=== PATIENT | female | born 1970 | race Caucasian/White ===

== ENCOUNTER 2018-01-08 07:16 | Inpatient (IN) | payer OTHER ==
[2018-01-08] MEDS ORDERED: IV NORMAL SALINE 250ML 250 ML IV (07:45)
[2018-01-08 07:52] LABS: ADD MAN DIFF? NO; BILIRUBIN,URINE NEGATIVE (NEG); CLARITY,URINE CLEAR; COLOR,URINE YELLOW; GLUCOSE,URINE NEGATIVE (NEG); NITRITE,URINE NEGATIVE (NEG); PROTEIN,URINE NEGATIVE (NEG-TRACE)
[2018-01-08 08:02] LABS: ANION GAP 13 (6-14); BLOOD UREA NITROGEN 6 mg/dL (7-20); BUN/CREATININE RATIO 10 (6-20); CALCIUM 8.1 mg/dL (8.5-10.1); CARBON DIOXIDE 22 mmol/L (21-32); CHLORIDE 105 mmol/L (98-107); CREATININE 0.6 mg/dL (0.6-1.0); GFR 108.1; GLUCOSE 104 mg/dL (70-99); POTASSIUM 3.7 mmol/L (3.5-5.1); SODIUM 140 mmol/L (136-145)
[2018-01-08] MEDS: fentaNYL PF VIAL 100 MCG/2 ML VIAL IV ×6 (08:06→23:42)
[2018-01-08] MEDS: ONDANSETRON PF 4 MG/2 ML VIAL. IV ×2 (08:07→18:11)
[2018-01-08 08:08] LABS: ALBUMIN 2.9 g/dL (3.4-5.0); ALBUMIN/GLOBULIN RATIO 0.7 (1.0-1.7); ALK PHOS 150 U/L (46-116); ALT (SGPT) 18 U/L (14-59); AST (SGOT) 39 U/L (15-37); LIPASE 170 U/L (73-393); TOTAL BILIRUBIN 1.3 mg/dL (0.2-1.0); TOTAL PROTEIN 7.3 g/dL (6.4-8.2)
[2018-01-08 08:09] LABS: BASO # 0.1 x10^3/uL (0.0-0.2); BASO % 1 % (0-3); EOS # 0.2 x10^3/uL (0.0-0.7); EOS % 2 % (0-3); HEMATOCRIT 32.2 % (36.0-47.0); HEMOGLOBIN 10.7 g/dL (12.0-15.5); LYMPH # 1.7 x10^3/uL (1.0-4.8); LYMPH % 20 % (24-48); MEAN CORPUSCULAR HEMOGLOBIN 28 pg (25-35); MEAN CORPUSCULAR HGB CONC 33 g/dL (31-37); MEAN CORPUSCULAR VOLUME 83 fL (79-100); MONO % 12 % (0-9); NEUT # 5.4 x10^3uL (1.8-7.7); NEUT % 65 % (31-73); PLATELET COUNT 106 x10^3/uL (140-400); RED BLOOD COUNT 3.89 x10^6/uL (3.50-5.40); RED CELL DISTRIBUTION WIDTH 20.4 % (11.5-14.5); WHITE BLOOD COUNT 8.3 x10^3/uL (4.0-11.0)
[2018-01-08] MEDS: IV NORMAL SALINE 500ML BAG 250 ML IV (08:11)
[2018-01-08 08:12] LABS: BACTERIA,URINE 0 /HPF (0-FEW); RBC,URINE 0 /HPF (0-2); SQUAMOUS EPITHELIAL CELL,UR MOD /LPF
[2018-01-08 08:43] LABS: INR 1.5 (0.8-1.1); PARTIAL THROMBOPLASTIN TIME 43 SEC (24-38); PROTHROMBIN TIME PATIENT 17.2 SEC (11.7-14.0)
[2018-01-08] MEDS ORDERED: CONTRAST GIVEN. MC (08:45)
[2018-01-08 09:07] LABS: ANISOCYTOSIS PRESENT; PLT ESTIMATE DECREASED (ADEQUATE)
[2018-01-08 09:42] LABS: NEG OBC UR NEG; POS OBC UR POS; U PREG PATIENT NEGATIVE (NEG)
[2018-01-08] MEDS: IOHEXOL 300 MG/ML 100ML VIAL. IV (09:50)
[2018-01-08] MEDS ORDERED: ONDANSETRON PF 4 MG/2 ML VIAL. IV (12:00)
[2018-01-08] MEDS ORDERED: MORPHINE SULFATE 2 MG/ML DISP.SYRIN. IV (12:00)
[2018-01-08] MEDS: LISINOPRIL 20 MG TABLET PO (13:00)
[2018-01-08] MEDS ORDERED: NON FORMULARY ITEM (Albuterol Sulfate (Albuterol Sulfate Neb Soln) 1 VIAL) NEB (13:00)
[2018-01-08] MEDS ORDERED: oxyCODONE/APAP 5/325 1 TAB TABLET PO (13:00)
[2018-01-08] MEDS: IV NORMAL SALINE 1000ML BAG 1,000 ML IV ×2 (13:37→23:42)
[2018-01-08] MEDS: PANTOPRAZOLE IV PUSH 40 MG VIAL. IVP (13:37)
[2018-01-08] MEDS: ALBUTEROL SULFATE 2.5 MG/3 ML NEBU. NEB ×3 (13:55→20:00)
[2018-01-08 15:34] LABS: SEDIMENTATION RATE 22 (0-25)
[2018-01-08] MEDS ORDERED: diphenhydrAMINE 50 MG/ML VIAL IVP (16:45)
[2018-01-08] MEDS ORDERED: HALOPERIDOL LACTATE 5 MG/ML VIAL. IVP (16:45)
[2018-01-08] MEDS ORDERED: LORazepam 1 MG TABLET PO (16:45)
[2018-01-08] MEDS: MULTIVIT INFUSN,ADULT 4,VIT K 10 ML, THIAMINE 100 MG, FOLIC ACID 1 MG in IV NORMAL SALI... IV (17:22)
[2018-01-08] MEDS: LACTOBACILLUS RHAMNOSUS GG 1 CAPSULE. PO (21:00)
[2018-01-08] MEDS ORDERED: MORPHINE SULFATE 4 MG/ML DISP.SYRIN. IV (23:30)
[2018-01-08] MEDS ORDERED: ALPRAZolam 0.25 MG TABLET PO (23:30)
[2018-01-09] MEDS: fentaNYL PF VIAL 100 MCG/2 ML VIAL IV ×6 (01:55→22:44)
[2018-01-09] MEDS: ONDANSETRON PF 4 MG/2 ML VIAL. IV ×3 (03:56→22:43)
[2018-01-09 04:45] LABS: ADD MAN DIFF? NO
[2018-01-09 05:22] LABS: PLT ESTIMATE DECREASED (ADEQUATE)
[2018-01-09 05:23] LABS: ANISOCYTOSIS MOD
[2018-01-09 05:24] LABS: EOS % 2 % (0-3); HEMATOCRIT 28.6 % (36.0-47.0); HEMOGLOBIN 9.5 g/dL (12.0-15.5); LYMPH % 31 % (24-48); MEAN CORPUSCULAR HEMOGLOBIN 28 pg (25-35); MEAN CORPUSCULAR HGB CONC 33 g/dL (31-37); MEAN CORPUSCULAR VOLUME 83 fL (79-100); MONO % 17 % (0-9); NEUT % 49 % (31-73); PLATELET COUNT 63 x10^3/uL (140-400); RED BLOOD COUNT 3.44 x10^6/uL (3.50-5.40); RED CELL DISTRIBUTION WIDTH 20.1 % (11.5-14.5); WHITE BLOOD COUNT 2.9 x10^3/uL (4.0-11.0)
[2018-01-09 05:25] LABS: BASO % 1 % (0-3); LYMPH # 0.9 x10^3/uL (1.0-4.8); MONO # 0.5 x10^3/uL (0.0-1.1); NEUT # 1.4 x10^3uL (1.8-7.7)
[2018-01-09 05:32] LABS: ALBUMIN 2.5 g/dL (3.4-5.0); ALBUMIN/GLOBULIN RATIO 0.6 (1.0-1.7); ALK PHOS 125 U/L (46-116); ALT (SGPT) 16 U/L (14-59); ANION GAP 8 (6-14); AST (SGOT) 31 U/L (15-37); BLOOD UREA NITROGEN 6 mg/dL (7-20); BUN/CREATININE RATIO 9 (6-20); CALCIUM 7.6 mg/dL (8.5-10.1); CARBON DIOXIDE 26 mmol/L (21-32); CHLORIDE 105 mmol/L (98-107); CREATININE 0.7 mg/dL (0.6-1.0); GFR 90.5; GLUCOSE 77 mg/dL (70-99); POTASSIUM 3.4 mmol/L (3.5-5.1); SODIUM 139 mmol/L (136-145); TOTAL BILIRUBIN 1.1 mg/dL (0.2-1.0); TOTAL PROTEIN 6.4 g/dL (6.4-8.2)
[2018-01-09] MEDS: ALBUTEROL SULFATE 2.5 MG/3 ML NEBU. NEB ×4 (07:53→19:49)
[2018-01-09] MEDS: LISINOPRIL 20 MG TABLET PO (08:05)
[2018-01-09] MEDS: IV NORMAL SALINE 1000ML BAG 1,000 ML IV (08:05)
[2018-01-09] MEDS: LACTOBACILLUS RHAMNOSUS GG 1 CAPSULE. PO ×2 (08:05→22:43)
[2018-01-09] MEDS: PANTOPRAZOLE IV PUSH 40 MG VIAL. IVP (08:06)
[2018-01-09 12:42] LABS: RETIC COUNT 1.8 % (0.5-2.5)
[2018-01-09 13:17] LABS: % SAT IRON 12 % (15-34); IRON,SERUM 32 ug/dL (50-170)
[2018-01-09 13:29] LABS: VITAMIN-B12 539 pg/mL (247-911)
[2018-01-09] MEDS: MULTIVIT INFUSN,ADULT 4,VIT K 10 ML, THIAMINE 100 MG, FOLIC ACID 1 MG in IV NORMAL SALI... IV (17:17)
[2018-01-09 21:11] LABS: CALCIUM PTH 7.5 mg/dL (8.7-10.2); CREATININE PTH 0.56 mg/dL (0.57-1.00); PHOSPHORUS PTH 3.1 mg/dL (2.5-4.5); PTH INTACT 29 pg/mL (15-65); eGFR AFRICAN-AMER 130 (>59); eGFR NON AFRICAN-AMER 113 (>59)
[2018-01-10] MEDS: fentaNYL PF VIAL 100 MCG/2 ML VIAL IV ×7 (01:45→22:44)
[2018-01-10 05:59] LABS: ADD MAN DIFF? NO
[2018-01-10 06:07] LABS: BASO % 1 % (0-3); EOS # 0.1 x10^3/uL (0.0-0.7); EOS % 4 % (0-3); HEMATOCRIT 29.8 % (36.0-47.0); LYMPH # 1.1 x10^3/uL (1.0-4.8); LYMPH % 39 % (24-48); MEAN CORPUSCULAR HEMOGLOBIN 28 pg (25-35); MEAN CORPUSCULAR HGB CONC 33 g/dL (31-37); MEAN CORPUSCULAR VOLUME 83 fL (79-100); MONO # 0.4 x10^3/uL (0.0-1.1); MONO % 16 % (0-9); NEUT # 1.1 x10^3uL (1.8-7.7); NEUT % 40 % (31-73); PLATELET COUNT 59 x10^3/uL (140-400); RED BLOOD COUNT 3.59 x10^6/uL (3.50-5.40); RED CELL DISTRIBUTION WIDTH 19.9 % (11.5-14.5); WHITE BLOOD COUNT 2.7 x10^3/uL (4.0-11.0)
[2018-01-10 06:36] LABS: ALBUMIN 2.4 g/dL (3.4-5.0); ALBUMIN/GLOBULIN RATIO 0.6 (1.0-1.7); ALK PHOS 123 U/L (46-116); ALT (SGPT) 14 U/L (14-59); ANION GAP 9 (6-14); AST (SGOT) 32 U/L (15-37); BLOOD UREA NITROGEN 4 mg/dL (7-20); BUN/CREATININE RATIO 6 (6-20); CALCIUM 7.3 mg/dL (8.5-10.1); CARBON DIOXIDE 24 mmol/L (21-32); CHLORIDE 102 mmol/L (98-107); CREATININE 0.7 mg/dL (0.6-1.0); GFR 90.5; GLUCOSE 74 mg/dL (70-99); POTASSIUM 3.1 mmol/L (3.5-5.1); SODIUM 135 mmol/L (136-145); TOTAL BILIRUBIN 1.4 mg/dL (0.2-1.0); TOTAL PROTEIN 6.2 g/dL (6.4-8.2)
[2018-01-10] MEDS: PANTOPRAZOLE 40 MG TABLET.DR. PO (08:02)
[2018-01-10] MEDS: ALBUTEROL SULFATE 2.5 MG/3 ML NEBU. NEB ×3 (08:16→15:35)
[2018-01-10] MEDS: LISINOPRIL 20 MG TABLET PO (09:13)
[2018-01-10] MEDS: LACTOBACILLUS RHAMNOSUS GG 1 CAPSULE. PO ×2 (09:13→22:43)
[2018-01-10] MEDS: NICOTINE 21MG PATCH. TD (10:49)
[2018-01-10] MEDS ORDERED: POTASSIUM CHLORIDE 20MEQ 50 ML IV (15:00)
[2018-01-10] MEDS: POTASSIUM CHLORIDE 20 MEQ TABLET.ER. PO (15:14)
[2018-01-10] MEDS ORDERED: POTASSIUM CHLORIDE 10MEQ 100 ML IV (15:30)
[2018-01-10] MEDS: MULTIVIT INFUSN,ADULT 4,VIT K 10 ML, THIAMINE 100 MG, FOLIC ACID 1 MG in IV NORMAL SALI... IV (17:56)
[2018-01-11] MEDS: fentaNYL PF VIAL 100 MCG/2 ML VIAL IV ×3 (02:54→09:47)
[2018-01-11] MEDS: PANTOPRAZOLE 40 MG TABLET.DR. PO ×2 (06:15→11:37)
[2018-01-11] MEDS: ALBUTEROL SULFATE 2.5 MG/3 ML NEBU. NEB ×4 (07:09→19:49)
[2018-01-11 09:11] LABS: HEPATITIS B SURFACE AG Nonreactive (Nonreactive)
[2018-01-11 09:43] LABS: HEPATITIS C AB Reactive (Nonreactive)
[2018-01-11] MEDS: SINCALIDE 1.25 MCG in IV NORMAL SALINE 50ML 30 ML IV (10:26)
[2018-01-11] MEDS: LISINOPRIL 20 MG TABLET PO (11:36)
[2018-01-11] MEDS: LACTOBACILLUS RHAMNOSUS GG 1 CAPSULE. PO ×2 (11:37→21:53)
[2018-01-11] MEDS: LORazepam 1 MG TABLET PO ×2 (11:52→18:19)
[2018-01-11] MEDS ORDERED: POTASSIUM CHLORIDE 20MEQ 50 ML IV (12:30)
[2018-01-11 12:43] LABS: ADD MAN DIFF? NO
[2018-01-11 12:46] LABS: BASO % 1 % (0-3); EOS # 0.1 x10^3/uL (0.0-0.7); EOS % 5 % (0-3); HEMATOCRIT 32.6 % (36.0-47.0); HEMOGLOBIN 10.6 g/dL (12.0-15.5); LYMPH # 0.9 x10^3/uL (1.0-4.8); LYMPH % 31 % (24-48); MEAN CORPUSCULAR HEMOGLOBIN 27 pg (25-35); MEAN CORPUSCULAR HGB CONC 33 g/dL (31-37); MEAN CORPUSCULAR VOLUME 84 fL (79-100); MONO # 0.3 x10^3/uL (0.0-1.1); MONO % 10 % (0-9); NEUT # 1.6 x10^3uL (1.8-7.7); NEUT % 54 % (31-73); PLATELET COUNT 68 x10^3/uL (140-400); RED CELL DISTRIBUTION WIDTH 19.8 % (11.5-14.5)
[2018-01-11] MEDS: DICYCLOMINE HCL 10 MG CAPSULE PO ×2 (13:21→21:53)
[2018-01-11] MEDS: POTASSIUM CHLORIDE 20 MEQ TABLET.ER. PO ×2 (13:23→14:00)
[2018-01-11 14:11] LABS: ALBUMIN 2.7 g/dL (3.4-5.0); ALBUMIN/GLOBULIN RATIO 0.7 (1.0-1.7); ALK PHOS 125 U/L (46-116); ALT (SGPT) 17 U/L (14-59); ANION GAP 8 (6-14); AST (SGOT) 43 U/L (15-37); BLOOD UREA NITROGEN 3 mg/dL (7-20); BUN/CREATININE RATIO 4 (6-20); CALCIUM 8.1 mg/dL (8.5-10.1); CARBON DIOXIDE 27 mmol/L (21-32); CHLORIDE 102 mmol/L (98-107); CREATININE 0.7 mg/dL (0.6-1.0); GFR 90.5; GLUCOSE 176 mg/dL (70-99); POTASSIUM 3.3 mmol/L (3.5-5.1); SODIUM 137 mmol/L (136-145); TOTAL BILIRUBIN 1.5 mg/dL (0.2-1.0); TOTAL PROTEIN 6.8 g/dL (6.4-8.2)
[2018-01-11] MEDS: MULTIVIT INFUSN,ADULT 4,VIT K 10 ML, THIAMINE 100 MG, FOLIC ACID 1 MG in IV NORMAL SALI... IV (18:20)
[2018-01-12] MEDS: ALBUTEROL SULFATE 2.5 MG/3 ML NEBU. NEB ×2 (07:03→11:17)
[2018-01-12] MEDS: LISINOPRIL 20 MG TABLET PO (09:00)
[2018-01-12] MEDS: LORazepam 1 MG TABLET PO (09:58)
[2018-01-12] MEDS: PANTOPRAZOLE 40 MG TABLET.DR. PO (09:58)
[2018-01-12] MEDS: DICYCLOMINE HCL 10 MG CAPSULE PO (09:58)
[2018-01-12] MEDS: LACTOBACILLUS RHAMNOSUS GG 1 CAPSULE. PO (09:58)
[2018-01-13 14:16] LABS: HCV ULTRA QUANT PCR HCV Not Detected IU/mL (.)
== END 2018-01-12 12:00 | disposition home or self-care (01) | DRG 388 ==
LOC: 4 NORTH 01-11 13:54 → ER 07:16 → 4 NORTH 01-11 16:26
DX: K56.609 Unspecified intestinal obstruction, unspecified as to partial versus complete obstruction (principal); E43 Unspecified severe protein-calorie malnutrition; R18.8 Other ascites; K52.9 Noninfective gastroenteritis and colitis, unspecified; D64.9 Anemia, unspecified; D69.6 Thrombocytopenia, unspecified; F10.10 Alcohol abuse, uncomplicated; F17.210 Nicotine dependence, cigarettes, uncomplicated; F32.9 Major depressive disorder, single episode, unspecified; F41.9 Anxiety disorder, unspecified; I10 Essential (primary) hypertension; J44.9 Chronic obstructive pulmonary disease, unspecified; K21.9 Gastro-esophageal reflux disease without esophagitis; K74.60 Unspecified cirrhosis of liver; K76.0 Fatty (change of) liver, not elsewhere classified; K82.8 Other specified diseases of gallbladder; N20.0 Calculus of kidney; N28.89 Other specified disorders of kidney and ureter; Z83.3 Family history of diabetes mellitus; Z87.442 Personal history of urinary calculi; Z68.23 Body mass index [BMI] 23.0-23.9, adult; Z90.49 Acquired absence of other specified parts of digestive tract; Z91.19 Patient's noncompliance with other medical treatment and regimen; Z88.0 Allergy status to penicillin
CPT/HCPCS: 36415; 74018; 74177; 76705; 78226; 80053; 81001; 81025; 82607; 83540; 83550; 83690; 83970; 85025; 85045; 85610; 85651; 85730; 86803; 87340; 87521; 94640; 94760; 96361; 96374; 96375; 99285; 99285-25; 99406; A9537; C9113; J2060; J2405; J2805; J3010; J7030; J7040; J7613; Q9967

== ENCOUNTER 2018-01-18 18:23 | Emergency (ER) | payer OTHER ==
[2018-01-18 19:42] LABS: URINE HCG POC HCG NEGATIVE (Negative)
[2018-01-18 19:58] LABS: ADD MAN DIFF? NO
[2018-01-18 20:00] LABS: BASO # 0.1 x10^3/uL (0.0-0.2); BASO % 1 % (0-3); EOS # 0.1 x10^3/uL (0.0-0.7); EOS % 1 % (0-3); HEMATOCRIT 36.8 % (36.0-47.0); HEMOGLOBIN 12.3 g/dL (12.0-15.5); LYMPH # 1.5 x10^3/uL (1.0-4.8); LYMPH % 19 % (24-48); MEAN CORPUSCULAR HEMOGLOBIN 27 pg (25-35); MEAN CORPUSCULAR HGB CONC 33 g/dL (31-37); MEAN CORPUSCULAR VOLUME 81 fL (79-100); MONO # 0.8 x10^3/uL (0.0-1.1); MONO % 10 % (0-9); NEUT # 5.5 x10^3uL (1.8-7.7); NEUT % 69 % (31-73); PLATELET COUNT 97 x10^3/uL (140-400); RED BLOOD COUNT 4.55 x10^6/uL (3.50-5.40); RED CELL DISTRIBUTION WIDTH 20.4 % (11.5-14.5); WHITE BLOOD COUNT 7.9 x10^3/uL (4.0-11.0)
[2018-01-18 20:09] LABS: INR 1.4 (0.8-1.1); PROTHROMBIN TIME PATIENT 16.5 SEC (11.7-14.0)
[2018-01-18 20:11] LABS: AMMONIA 22 mcmol/L (11-34)
[2018-01-18 20:12] LABS: ANION GAP 13 (6-14); BLOOD UREA NITROGEN 7 mg/dL (7-20); BUN/CREATININE RATIO 10 (6-20); CARBON DIOXIDE 18 mmol/L (21-32); CHLORIDE 102 mmol/L (98-107); CREATININE 0.7 mg/dL (0.6-1.0); GFR 90.5; GLUCOSE 89 mg/dL (70-99); POTASSIUM 3.6 mmol/L (3.5-5.1); SODIUM 133 mmol/L (136-145)
[2018-01-18 20:16] LABS: LACTIC ACID 3.8 mmol/L (0.4-2.0)
[2018-01-18 20:18] LABS: ALBUMIN 3.4 g/dL (3.4-5.0); ALBUMIN/GLOBULIN RATIO 0.7 (1.0-1.7); ALK PHOS 184 U/L (46-116); ALT (SGPT) 24 U/L (14-59); AST (SGOT) 53 U/L (15-37); LIPASE 134 U/L (73-393); MAGNESIUM 1.5 mg/dL (1.8-2.4); TOTAL BILIRUBIN 1.5 mg/dL (0.2-1.0); TOTAL PROTEIN 8.4 g/dL (6.4-8.2)
[2018-01-18 20:20] LABS: TROPONINI < 0.017 ng/mL (0.000-0.055)
[2018-01-18 20:21] LABS: ETHANOL 120 mg/dL (0-10)
[2018-01-18 20:28] LABS: NT-PRO BNP 298 pg/mL (0-124)
[2018-01-18] MEDS ORDERED: CONTRAST GIVEN. MC (20:45)
[2018-01-18] MEDS: IOHEXOL 300 MG/ML 100ML VIAL. IV (20:49)
[2018-01-18 20:54] LABS: PLT ESTIMATE DECREASED (ADEQUATE)
[2018-01-18 20:55] LABS: ANISOCYTOSIS MOD
[2018-01-18 21:12] LABS: PROCALCITONIN < 0.10 ng/mL (0.00-0.10)
[2018-01-18] MEDS: MAGNESIUM SULFATE 1GM 100 ML IV (21:14)
[2018-01-18] MEDS: IV NORMAL SALINE 1000ML BAG 1,000 ML IV (21:14)
[2018-01-18 21:55] LABS: BILIRUBIN,URINE NEGATIVE (NEG); CLARITY,URINE CLEAR; COLOR,URINE YELLOW; GLUCOSE,URINE NEGATIVE (NEG); NITRITE,URINE NEGATIVE (NEG); PROTEIN,URINE NEGATIVE (NEG-TRACE); UROBILINOGEN,URINE 0.2 mg/dL (0.2 mg/dL)
[2018-01-18 22:07] LABS: BACTERIA,URINE MODERATE /HPF (0-FEW); RBC,URINE 0 /HPF (0-2)
[2018-01-18 22:08] LABS: SQUAMOUS EPITHELIAL CELL,UR MOD /LPF
== END 2018-01-18 22:45 | disposition home or self-care (01) ==
LOC: ER 18:23
DX: R10.30 Lower abdominal pain, unspecified (principal); R06.02 Shortness of breath; R05 Cough; F41.9 Anxiety disorder, unspecified; F31.9 Bipolar disorder, unspecified; Z87.19 Personal history of other diseases of the digestive system; Z90.49 Acquired absence of other specified parts of digestive tract; Z87.442 Personal history of urinary calculi; Z88.0 Allergy status to penicillin
CPT/HCPCS: 36415; 71045; 74177; 80053; 81001; 81025; 82140; 83605; 83690; 83735; 83880; 84145; 84484; 85025; 85610; 87040; 87086; 93005; 96365; 99285-25; G0480; J3475; J7030; Q9967

== ENCOUNTER 2018-01-22 10:29 | Emergency (ER) | payer OTHER | END 2018-01-22 11:09 | disposition home or self-care (01) | LOC: ER 10:29 | DX: M54.5 Low back pain (principal); G47.00 Insomnia, unspecified; F10.10 Alcohol abuse, uncomplicated; F31.9 Bipolar disorder, unspecified; J44.9 Chronic obstructive pulmonary disease, unspecified; Z88.0 Allergy status to penicillin | CPT/HCPCS: 99283 ==

== ENCOUNTER 2018-02-11 18:55 | Emergency (ER) | payer OTHER ==
[2018-02-11 20:12] LABS: ADD MAN DIFF? NO
[2018-02-11 20:20] LABS: BASO # 0.1 x10^3/uL (0.0-0.2); BASO % 1 % (0-3); EOS # 0.1 x10^3/uL (0.0-0.7); EOS % 1 % (0-3); HEMATOCRIT 34.3 % (36.0-47.0); HEMOGLOBIN 11.2 g/dL (12.0-15.5); LYMPH # 2.9 x10^3/uL (1.0-4.8); LYMPH % 20 % (24-48); MEAN CORPUSCULAR HEMOGLOBIN 26 pg (25-35); MEAN CORPUSCULAR HGB CONC 33 g/dL (31-37); MEAN CORPUSCULAR VOLUME 81 fL (79-100); MONO # 1.1 x10^3/uL (0.0-1.1); MONO % 7 % (0-9); NEUT # 10.1 x10^3uL (1.8-7.7); NEUT % 71 % (31-73); PLATELET COUNT 75 x10^3/uL (140-400); RED BLOOD COUNT 4.26 x10^6/uL (3.50-5.40); RED CELL DISTRIBUTION WIDTH 19.9 % (11.5-14.5); WHITE BLOOD COUNT 14.2 x10^3/uL (4.0-11.0)
[2018-02-11 20:24] LABS: ETHANOL 186 mg/dL (0-10)
[2018-02-11 20:28] LABS: ALBUMIN 3.5 g/dL (3.4-5.0); ALBUMIN/GLOBULIN RATIO 0.7 (1.0-1.7); ALK PHOS 172 U/L (46-116); ALT (SGPT) 43 U/L (14-59); ANION GAP 14 (6-14); AST (SGOT) 99 U/L (15-37); BLOOD UREA NITROGEN 6 mg/dL (7-20); BUN/CREATININE RATIO 8 (6-20); CALCIUM 8.8 mg/dL (8.5-10.1); CARBON DIOXIDE 27 mmol/L (21-32); CHLORIDE 101 mmol/L (98-107); CREATININE 0.8 mg/dL (0.6-1.0); GFR 77.6; GLUCOSE 109 mg/dL (70-99); MAGNESIUM 1.9 mg/dL (1.8-2.4); SODIUM 142 mmol/L (136-145); TOTAL BILIRUBIN 2.3 mg/dL (0.2-1.0); TOTAL PROTEIN 8.6 g/dL (6.4-8.2)
[2018-02-11 20:37] LABS: POTASSIUM 2.9 mmol/L (3.5-5.1)
[2018-02-11] MEDS: IV NORMAL SALINE 1000ML BAG 1,000 ML IV (20:41)
[2018-02-11] MEDS: ONDANSETRON PF 4 MG/2 ML VIAL. IV (20:41)
[2018-02-11 20:51] LABS: ANISOCYTOSIS SLIGHT; PLT ESTIMATE DECREASED (ADEQUATE)
[2018-02-11 20:52] LABS: POLYCHROMASIA SLIGHT
[2018-02-11] MEDS: POTASSIUM CHLORIDE 20 MEQ TABLET.ER. PO (21:47)
== END 2018-02-11 21:49 | disposition home or self-care (01) ==
LOC: ER 18:55
DX: R51 Headache (principal); F10.920 Alcohol use, unspecified with intoxication, uncomplicated; F31.0 Bipolar disorder, current episode hypomanic; J44.9 Chronic obstructive pulmonary disease, unspecified; Z87.442 Personal history of urinary calculi; Z90.49 Acquired absence of other specified parts of digestive tract; Z88.0 Allergy status to penicillin
CPT/HCPCS: 36415; 80053; 83735; 85025; 93005; 96374; 99285-25; G0480; J2405; J7030